=== PATIENT | female | born 1935 | race Caucasian/White ===

== ENCOUNTER 2018-07-18 09:30 | Emergency (ER) | payer MEDICARE, OTHER ==
[2018-07-18] MEDS ORDERED: methylPREDNISolone SOD SUCC 125 MG/2 ML VIAL IM ONE (09:53)
[2018-07-18] MEDS ORDERED: IPRATROPIUM/ALBUTEROL SULFATE 3 ML AMPUL.NEB NEB ONE (09:53)
--- NOTE | 2018-07-18 10:03 | ED Physician Documentation ---
Upper Respiratory Symptoms - HPI Stated Complaint: cough/congestion Chief Complaint: Cough/ Upper Respiratory Additional Information: Patient presents with a 7 days history of cough, nasal congestion refractory to Zpak and tesslon pearls x 5 days. Patient reports life long smoker and she likely has some sort of lung issues herself. She has been unable to sleep due to the cough and feels worn out. Onset: days ago (7) Duration: intermittent episodes Context: denies: recent foreign travel Associated Symptoms: chills, sinus drainage, productive cough. denies: bloody cough, headache Worsened by Deep Breath: Yes - ROS CONST/EYES: denies: weakness CVS/RESP: denies: chest pain, shortness of breath LYMPH: denies: ankle swelling GI/: denies: vomiting, nausea NEURO/PSYCH: denies: fainting - PAST HX Lung Disease: COPD PE Risk Factors: none Surgeries/Procedures: none Allergies/Adverse Reactions: Allergies Allergy/AdvReac Type Severity Reaction Status Date / Time Penicillins AdvReac Nausea/Vomi Verified 07/18/18 09:49 ting Sulfa (Sulfonamide AdvReac Nausea/Vomi Verified 07/18/18 09:49 Antibiotics) ting Home Medications: Ambulatory Orders Medication Instructions Recorded Ipratropium/Albuterol Sulfate 3 ml IH TID #90 ampul.neb 07/18/18 [Duoneb] Levofloxacin [Levaquin] 750 mg PO DAILY #10 tablet 07/18/18 Methylprednisolone [Medrol] 4 mg PO DIRECTED #1 tab.ds.pk 07/18/18 Metoprolol Tartrate 100 mg PO DAILY 07/18/18 amLODIPine BESYLATE [Norvasc] 2.5 mg PO 0900 07/18/18 - SOCIAL HX Smoking History: non-smoker Alcohol Use: none Drug Use: none - FAMILY HX Family History: none - VITAL SIGNS Vital Signs: Vital Signs Temp Pulse Resp BP Pulse Ox 98.4 F 82 20 159/82 98 07/18/18 09:35 07/18/18 09:35 07/18/18 09:35 07/18/18 09:35 07/18/18 09:35 - REVIEWED ASSESSMENTS Nursing Assessment Reviewed: Yes Vitals Reviewed: Yes Progress - Progress Progress: PA and lateral chest CLINICAL HISTORY: Cough for 1 week. FINDINGS: Examination of the chest in PA and lateral views with no prior film for comparison demonstrates the lungs to be hyperinflated. There is mild blunting the costophrenic angles consistent with pleural reaction or small effusions. The cardiac silhouette is enlarged and the aorta is atherosclerotic. Scoliosis is evident in the thoracic spine convex to the right. Bilateral apical pleural thickening is evident. IMPRESSION: Pleural effusions or pleural reaction blunting the costophrenic angles. Scoliosis. Aortic atherosclerosis and left ventricular prominence. Electronically signed on Jul 18, 2018 10:27:00 AM [employer] ATTENDANT by: Allen Can ED Results Lab/Radiology - Orders Orders: ED Orders Category Date Time Status CHEST 2VIEW [RAD] Stat Exams 07/18/18 Taken Ipratropium/Albuterol Sulfate [Duoneb] Med 07/18/18 09:53 Discontinued 3 ml NEB NOW ONE Lidocaine 1% 5ml(IM or SUTURE) [Xylocaine] Med 07/18/18 10:21 Discontinued 2.5 mg IVP NOW ONE cefTRIAXone SODIUM [Rocephin] Med 07/18/18 10:22 Discontinued 1 gm IM NOW ONE methylPREDNISolone SOD SUCC [Solu-MEDROL] Med 07/18/18 09:53 Discontinued 125 mg IM NOW ONE Upper Respiratory Symptoms - EXAM General Appearance: no acute distress, alert EENT: PERRL Neck: normal inspection. No: lymphadenopathy Respiratory: no resp. distress, speaks full sentences, other (diminished breath sounds bilaterally). No: respiratory distress Abdomen: non-tender CVS: reg rate & rhythm, heart sounds normal Skin: color nml, no rash, warm,dry Extremities: non-tender, no edema Neuro/Psych: oriented x3, neuro intact, mood/affect nml Discharge Clincal Impression: Bilateral pneumonia Qualifiers: Pneumonia type: due to unspecified organism Lung location: lower lobe of lung Qualified Code(s): J18.1 - Lobar pneumonia, unspecified organism Prescriptions: Ipratropium/Albuterol Sulfate [Duoneb] 3 ml IH TID #90 ampul.neb Levofloxacin [Levaquin] 750 mg PO DAILY #10 tablet Methylprednisolone [Medrol] 4 mg PO DIRECTED #1 tab.ds.pk Referrals: Argenis Issa MD [Primary Care Provider] - 2 Days Additional Instructions: Follow up with PCP in [address] Chest with contrast in next 30 days to investigate possible pulmonary fibrosis/COPD. Condition: Stable Disposition: 01 HOME, SELF-CARE Decision to Admit: NO Date of Decison to Admit: 07/18/18 Decision Time: 11:15
[2018-07-18] MEDS ORDERED: Lidocaine 1% 5ml(IM or SUTURE)(PAIN CLINIC) IVP ONE (10:21)
[2018-07-18] MEDS ORDERED: cefTRIAXone SODIUM 1 GM VIAL IM ONE (10:22)
--- NOTE | 2018-07-18 11:53 | Diagnostic Imaging Report ---
HERLINDA JO [facility] [id number] Count Includes [facility] [address] 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 FINDINGS: Examination of the chest in PA and lateral views with no prior film for comparison demonstrates the lungs to be hyperinflated. There is mild blunting the costophrenic angles consistent with pleural reaction or small effusions. The cardiac silhouette is enlarged and the aorta is atherosclerotic. Scoliosis is evident in the thoracic spine convex to the right. Bilateral apical pleural thickening is evident. IMPRESSION: Pleural effusions or pleural reaction blunting the costophrenic angles. Scoliosis. Aortic atherosclerosis and left ventricular prominence. Electronically signed on Jul 18, 2018 10:27:00 AM FIELD CASHIER by: Allen CASIANO
[2018-07-18 12:34] VITALS: BP 158/73
== END 2018-07-18 11:40 | disposition home or self-care (01) ==
LOC: ED 09:30
DX: J18.9 Pneumonia, unspecified organism (principal)
CPT/HCPCS: 71046; 96372; 96374; 99283; J0696; J2930; 94640